=== PATIENT | female | born 1960 | race Caucasian/White ===

== ENCOUNTER → 2016-08-29 | Day surgery (SDC) | payer OTHER ==
--- NOTE | 2016-08-26 14:09 | History & Physical Pre-Op ---
General Information and HPI History of Present Illness: Alyssa is a 56-year-old female who recently sustained an avulsion fracture of her right lateral malleolus associated with a shearing injury. The patient now has significant pain with ambulation and shoe gear to her right foot. The patient presents for preoperative surgical consultation. Allergies/Medications Allergies: Coded Allergies: Sulfa (Sulfonamide Antibiotics) (RASH 04//) sulfamethoxazole (From BACTRIM) (RASH 09/17/15) trimethoprim (From BACTRIM) (RASH 09/17/15) Home Med list Atorvastatin Calcium (Lipitor) 20 MG TABLET 1 TAB PO DAILY CHOLESTEROL ( Reported) Glycopyrrolate/Formoterol Fum (Bevespi Aerosphere Inhaler) 9 MCG-4.8 MCG HFA.AER.AD COPD (Reported) Trazodone HCl 50 MG TABLET 1 TAB PO QPM SLEEP (Reported) Zolpidem Tartrate (Ambien) 10 MG TABLET 1 TAB PO QPMP SLEEP (Reported) Past History Medical History Cardiovascular: hyperlipidemia Respiratory: COPD Surgical History Pertinent Surgical History: appendectomy Review of Systems Review of Systems: Unremarkable except for that noted in history of present illness Exam & Diagnostic Data Physical Exam: Lungs clear bilaterally. Heart sounds rate and rhythm regular. Lower extremity physical exam demonstrates intact pedal pulses bilaterally. Both the dorsalis pedis and posterior tibial arteries are palpable bilaterally. Patient without any sensory motor deficits. Deep tendon reflexes grossly intact. Patient noted to have tenting of the skin with a large fragment of bone overlying the lateral malleolus. There is significant pain noted with palpation of this area. Ankle range of motion noted to be tender with both dorsiflexion and plantarflexion. Assessment/Plan Assessment/Plan: Painful fracture fragment right ankle. A lengthy discussion reviewing both surgical and conservative options was held with the patient at bedside and the patient elected to go forward with surgery despite the risks. As Ranked By This Provider Problem List: 1. Closed displaced fracture of lateral malleolus of right fibula Attending MD Review Statement Attending Statement Attending MD Statement: examined this patient
[~2016-08-29] VITALS: Ht 165.1 cm; Wt 62.6 kg
[~2016-08-29] MED LIST: AMBIEN10 M1 PO; BEVESPI AEROS10.7 GM; LIPITOR20 M2 PO; TRAZODONE HCL50 M1 PO
--- NOTE | 2016-08-31 13:43 | Operative Report ---
Operative/Inv Procedure Report Surgery Date: 08/29/16 Name of Procedure: 1 right ankle arthrotomy Pre-Operative Diagnosis: 1 nonunited fracture fragments right ankle Post-Operative Diagnosis: 1 nonunited fracture fragments right ankle 2 gouty arthritis right ankle Estimated Blood Loss: scant Surgeon/Marine Insulator: ALKA QUIGLEY DPM Anesthesia: moderate sedation, block Operative/Procedure Note Note: After obtaining informed consent the patient was brought to the operating room and placed on the operating table in the supine position. The patient isn't securely fastened to the operating table utilizing safety belt. After administration of IV sedation, 10 mL of 0.5% Marcaine plain was infiltrated about the patient's right ankle. A well-padded calf tourniquet was placed about the patient's right upper calf. 2 g of Ancef were delivered intravenously times one dose. Right lower extremity was then scrubbed prepped and draped in usual aseptic manner. Right lower extremity was elevated to examine to limb, which point the calf tourniquet was inflated 250 mmHg. Attention directed lateral ankle where a 4 cm curvilinear incision was made overlying the distal lateral malleolus. Dissection was then carried down into the subtenons tissues. All vital neurovascular structures were identified protected. The capsule was pierced, a yellowish caseous material was noted to be expressed from the joint. Specimen was sent for both microbiologic and pathologic inspection. The fragments were then identified within the joint and with a rongeur forceps were removed. The open wound wound and joint were then irrigated with cuff Svensson normal sterile saline. The deep capsule structures reapproximated 3-0 Vicryl. Subtenons tissues reprepped with 4-0 Vicryl and the skin edges reapproximated with 4-0 nylon. Incision was dressed with Xeroform 4 x 4's Kerlix and an Mark wrap. The patient was noted tolerate both procedure and anesthesia well and the patient was transported from the operating room to recovery by sent stable best assess intact to all digits right foot.
== END ==
LOC: STS 01:36
DX: S82.61XA Displaced fracture of lateral malleolus of right fibula, initial encounter for closed fracture (principal); X58.XXXA Exposure to other specified factors, initial encounter; J44.9 Chronic obstructive pulmonary disease, unspecified; F17.200 Nicotine dependence, unspecified, uncomplicated
CPT/HCPCS: 87070; 87075; 88305; J0690; J1885; J2001; J2250